=== PATIENT | female | born 1940 | race Caucasian/White ===

== ENCOUNTER 2019-07-25 21:32 | Inpatient (IN) | payer MEDICARE, MEDICAID ==
[~2019-07-25] VITALS: Ht 160 cm; Wt 61.2 kg
[2019-07-25] MEDS ORDERED: ONDANSETRON HCL 4MG/2ML INJ IV ONE (21:45)
[2019-07-25] MEDS ORDERED: SODIUM CHLORIDE 0.9% 1000ML BAG (SEPSIS BOLUS) IV ONE (21:45)
[2019-07-25] MEDS ORDERED: ACETAMINOPHEN 650MG SUPP PR STA (21:45)
[2019-07-25] MEDS ORDERED: PIPERACILLIN/TAZ 3.375G PREMIX 50 ML IV ONE (21:45)
[2019-07-25] MEDS ORDERED: LEVOFLOXACIN 500MG PREMIX 100 ML IV ONE (22:00)
[2019-07-25 22:05] LABS: BASOPHILS % 0.4 % (0.0-2.0); HEMATOCRIT. 42.3 % (36.0-48.0); LYMPHOCYTES % 8.2 % (20.0-50.0); MEAN CORPUSCULAR HEMOGLOBIN 27.9 pg (28.0-32.0); MEAN CORPUSCULAR VOLUME 84.2 fL (81.0-99.0); MEAN PLATELET VOLUME 8.1 fl (7.4-10.4); MONOCYTES % 3.2 % (2.0-8.0); NEUTROPHILS % 76.2 % (40.0-76.0); PLATELET 155 x1000/uL (130-400); RED BLOOD CELL COUNT 5.02 mill/uL (4.2-5.4); RED CELL DISTRIBUTION WIDTH 13.3 % (11.6-14.6)
[2019-07-25 22:10] LABS: PROTHROMBIN TIME 10.7 sec (9.6-11.0)
[2019-07-25 22:12] LABS: CHLORIDE 96 mEq/L (98-107)
[2019-07-25 22:17] LABS: BG CARBOXYHEMOGLOBIN 0.9 % (0.5-1.5); BG DEOXYHEMOGLOBIN 6.3 % (0.0-5.0); BG FRACTION INSPIRED OXYGEN 36; BG HCO3 ACT 25.8 mmol/L (22.0-26.0); BG METHEMOGLOBIN 0.3 % (0.0-1.5); BG OXYGEN SATURATION 93.6 % (92.0-98.5); BG OXYHEMOGLOBIN 92.5 % (94.0-97.0); BG PCO2 46.4 mmHg (35.0-45.0); BG PH 7.363 (7.350-7.450); BG PO2 69.2 mmHg (75.0-100.0); BG SAMPLE SITE RIGHT RADIAL; BG VENT MODE NASAL CANNULA
[2019-07-25 23:07] LABS: CLARITY URINE CLOUDY (CLEAR); COLOR URINE YELLOW (YELLOW); KETONES URINE NEGATIVE (NEGATIVE); LEUKOCYTE ESTERASE URINE 3+ (NEGATIVE); NITRITE URINE POSITIVE (NEGATIVE); OCCULT BLOOD URINE TRACE (NEGATIVE); PH URINE 6.5 (4.5-8.0); PROTEIN URINE 2+ (NEGATIVE); SPECIFIC GRAVITY URINE 1.008 (1.005-1.030)
[2019-07-26] MEDS ORDERED: DIPHENHYDRAMINE 50MG/ML VIAL IV PRN (01:00)
[2019-07-26] MEDS ORDERED: CLONIDINE 0.1MG TABLET PO PRN (01:00)
[2019-07-26] MEDS ORDERED: MAGNESIUM/ALUMINUM HYDROXIDE/SIMETHICONE 30ML UDC PO PRN (01:00)
[2019-07-26] MEDS ORDERED: ONDANSETRON HCL 4MG/2ML INJ IV PRN (01:00)
[2019-07-26] MEDS ORDERED: DEXTROSE 50% WATER 50ML SYRINGE IV PRN (01:00)
[2019-07-26] MEDS ORDERED: SODIUM CHLORIDE 0.9% 1,000 ML IV SCH (01:30)
[2019-07-26] MEDS ORDERED: IPRATROPIUM/ALBUTEROL 0.5-3(2.5)MG/3ML NEB HHN PRN (02:00)
[2019-07-26] MEDS: GUAIFENESIN 200MG/10ML SUGAR FREE UDC PO PRN (04:44)
[2019-07-26 05:25] LABS: HEMATOCRIT. 37.7 % (36.0-48.0); HEMOGLOBIN. 12.4 g/dL (12.0-16.0); MEAN CORPUSCULAR HEMOGLOBIN 27.8 pg (28.0-32.0); MEAN CORPUSCULAR VOLUME 84.9 fL (81.0-99.0); MEAN PLATELET VOLUME 7.9 fl (7.4-10.4); PLATELET 143 x1000/uL (130-400); RED BLOOD CELL COUNT 4.44 mill/uL (4.2-5.4); RED CELL DISTRIBUTION WIDTH 13.4 % (11.6-14.6)
[2019-07-26 05:32] LABS: CHLORIDE 102 mEq/L (98-107)
[2019-07-26 06:44] LABS: PLATELET ESTIMATE NORMAL
[2019-07-26] MEDS: INSULIN LISPRO 100 UNITS/ML SUBCUT SCH ×4 (08:20→21:00)
[2019-07-26] MEDS: BLOOD SUGAR DIAGNOSTIC STRIP TEST SCH ×4 (09:00→20:59)
[2019-07-26] MEDS ORDERED: AMLODIPINE 5MG TABLET PO SCH (09:00)
[2019-07-26 09:45] VITALS: BP 126/65
[2019-07-26 12:00] VITALS: BP 138/70
[2019-07-26] MEDS: IPRATROPIUM/ALBUTEROL 0.5-3(2.5)MG/3ML NEB HHN SCH ×2 (13:54→23:50)
[2019-07-26] MEDS ORDERED: PNEUMOCOCCAL 23-VAL P-SAC VAC 0.5 ML IM ONE (14:00)
[2019-07-26] MEDS ORDERED: INFLUENZA VIRUS VACCINE(AFLURIA) 0.5ML SYR IM ONE (14:00)
[2019-07-26] MEDS: AMLODIPINE 2.5MG TABLET PO SCH ×2 (14:37→20:52)
[2019-07-26] MEDS: ENOXAPARIN 40MG/0.4ML SYR SUBCUT SCH (14:38)
[2019-07-26] MEDS: SODIUM CHLORIDE 0.9% 1,000 ML IV SCH (14:39)
[2019-07-26] MEDS ORDERED: GABA-531 MT (15:00)
[2019-07-26] MEDS ORDERED: AMIT25TA9 MT (15:00)
[2019-07-26] MEDS ORDERED: AMLO5TAB4 MT (15:00)
[2019-07-26] MEDS ORDERED: SITA50TA3 MT (15:00)
[2019-07-26 16:00] VITALS: BP 106/43
[2019-07-26] MEDS ORDERED: CEFTAZIDIME PENTAHYDRATE 1 G in DEXTROSE 5% WATER 50 ML IV SCH (16:30)
[2019-07-26] MEDS: CEFTAZIDIME PENTAHYDRATE 1 G in DEXTROSE 5% WATER 50 ML IV SCH (18:41)
[2019-07-26 20:00] VITALS: BP 142/71
[2019-07-26] MEDS: GUAIFENESIN 600MG ER TABLET PO SCH (20:52)
[2019-07-26] MEDS: LEVOFLOXACIN 500MG PREMIX 100 ML IV SCH (22:34)
[2019-07-27 00:03] VITALS: BP 144/65
[2019-07-27] MEDS: CEFTAZIDIME PENTAHYDRATE 1 G in DEXTROSE 5% WATER 50 ML IV SCH ×2 (01:41→10:22)
[2019-07-27 04:00] VITALS: BP 137/80
[2019-07-27] MEDS: IPRATROPIUM/ALBUTEROL 0.5-3(2.5)MG/3ML NEB HHN SCH ×3 (04:34→14:40)
[2019-07-27] MEDS: SODIUM CHLORIDE 0.9% 1,000 ML IV SCH (05:00)
[2019-07-27] MEDS: ACETAMINOPHEN 325MG TABLET PO PRN ×2 (05:00→17:27)
[2019-07-27] MEDS: BLOOD SUGAR DIAGNOSTIC STRIP TEST SCH ×4 (05:37→20:38)
[2019-07-27 07:55] LABS: HEMATOCRIT. 36.9 % (36.0-48.0); HEMOGLOBIN. 12.1 g/dL (12.0-16.0); MEAN CORPUSCULAR HEMOGLOBIN 27.5 pg (28.0-32.0); MEAN CORPUSCULAR VOLUME 83.9 fL (81.0-99.0); PLATELET 148 x1000/uL (130-400); RED CELL DISTRIBUTION WIDTH 13.8 % (11.6-14.6)
[2019-07-27 08:00] VITALS: BP 118/55
[2019-07-27 08:06] LABS: CHLORIDE 105 mEq/L (98-107)
[2019-07-27] MEDS: GUAIFENESIN 600MG ER TABLET PO SCH ×2 (08:38→20:34)
[2019-07-27] MEDS: INSULIN LISPRO 100 UNITS/ML SUBCUT SCH ×4 (08:42→20:38)
[2019-07-27] MEDS: AMLODIPINE 2.5MG TABLET PO SCH ×2 (08:43→20:35)
[2019-07-27] MEDS: GUAIFENESIN 200MG/10ML SUGAR FREE UDC PO PRN (08:53)
[2019-07-27] MEDS: ENOXAPARIN 40MG/0.4ML SYR SUBCUT SCH (10:21)
[2019-07-27 11:34] LABS: PLATELET ESTIMATE NORMAL
[2019-07-27 12:00] VITALS: BP 135/69
[2019-07-27] MEDS ORDERED: POTASSIUM PHOS,M-BASIC-D-BASIC 15 MMOL in DEXT 5% WATER 245 ML IV SCH (12:00)
[2019-07-27 16:00] VITALS: BP 142/62
[2019-07-27 20:00] VITALS: BP 142/71
[2019-07-27 20:50] LABS: BG BASE EXCESS 4.3 mmol/L (-2.0-2.0); BG CARBOXYHEMOGLOBIN 0.3 % (0.5-1.5); BG DEOXYHEMOGLOBIN 4.3 % (0.0-5.0); BG FRACTION INSPIRED OXYGEN 32; BG HCO3 ACT 28.9 mmol/L (22.0-26.0); BG METHEMOGLOBIN 0.1 % (0.0-1.5); BG OXYGEN SATURATION 95.7 % (92.0-98.5); BG OXYHEMOGLOBIN 95.3 % (94.0-97.0); BG PCO2 43.4 mmHg (35.0-45.0); BG PH 7.442 (7.350-7.450); BG PO2 70.3 mmHg (75.0-100.0); BG SAMPLE SITE RIGHT RADIAL; BG TOTAL HEMOGLOBIN 13.5 g/dL (12.0-18.0); BG VENT MODE NASAL CANNULA
[2019-07-27] MEDS: LEVOFLOXACIN 500MG PREMIX 100 ML IV SCH (23:35)
[2019-07-28 00:05] VITALS: BP 141/62
[2019-07-28] MEDS: IPRATROPIUM/ALBUTEROL 0.5-3(2.5)MG/3ML NEB HHN SCH ×4 (00:50→20:04)
[2019-07-28] MEDS: SODIUM CHLORIDE 0.9% 1,000 ML IV SCH ×2 (02:51→23:08)
[2019-07-28 04:00] VITALS: BP 137/69
[2019-07-28] MEDS: BLOOD SUGAR DIAGNOSTIC STRIP TEST SCH ×4 (05:40→21:00)
[2019-07-28] MEDS: INSULIN LISPRO 100 UNITS/ML SUBCUT SCH ×4 (07:47→21:00)
[2019-07-28 08:00] VITALS: BP 124/56
[2019-07-28] MEDS: GUAIFENESIN 600MG ER TABLET PO SCH ×2 (10:00→21:02)
[2019-07-28] MEDS: AMLODIPINE 2.5MG TABLET PO SCH ×2 (10:00→21:02)
[2019-07-28] MEDS: ENOXAPARIN 40MG/0.4ML SYR SUBCUT SCH (10:01)
[2019-07-28 12:00] VITALS: BP 146/62
[2019-07-28] MEDS ORDERED: POTASSIUM PHOS,M-BASIC-D-BASIC 20 MMOL in DEXT 5% WATER 243.3333 ML IV ONE (12:15)
[2019-07-28 16:00] VITALS: BP 146/76
[2019-07-28] MEDS ORDERED: POTASSIUM CHLORIDE INJ 40 MEQ in DEXT 5% WATER 250 ML IV SCH (16:00)
[2019-07-28 20:00] VITALS: BP 146/76
[2019-07-28] MEDS: LEVOFLOXACIN 500MG PREMIX 100 ML IV SCH (23:50)
[2019-07-29 00:05] VITALS: BP 117/62
[2019-07-29] MEDS: TRAMADOL 50MG TABLET PO PRN (00:05)
[2019-07-29 04:00] VITALS: BP 129/55
[2019-07-29] MEDS: IPRATROPIUM/ALBUTEROL 0.5-3(2.5)MG/3ML NEB HHN SCH ×3 (05:02→16:54)
[2019-07-29] MEDS: BLOOD SUGAR DIAGNOSTIC STRIP TEST SCH ×4 (05:57→21:54)
[2019-07-29 06:31] LABS: CHLORIDE 102 mEq/L (98-107)
[2019-07-29 06:37] LABS: PHOSPHORUS 3.7 mg/dL (2.5-4.9)
[2019-07-29 06:40] LABS: HEMATOCRIT. 39.6 % (36.0-48.0); HEMOGLOBIN. 12.9 g/dL (12.0-16.0); MEAN CORPUSCULAR HEMOGLOBIN 27.4 pg (28.0-32.0); MEAN CORPUSCULAR VOLUME 83.9 fL (81.0-99.0); MEAN PLATELET VOLUME 7.9 fl (7.4-10.4); PLATELET 197 x1000/uL (130-400); RED BLOOD CELL COUNT 4.73 mill/uL (4.2-5.4); RED CELL DISTRIBUTION WIDTH 13.9 % (11.6-14.6)
[2019-07-29 08:00] VITALS: BP 126/73
[2019-07-29] MEDS: INSULIN LISPRO 100 UNITS/ML SUBCUT SCH ×4 (08:10→21:00)
[2019-07-29 10:19] LABS: PLATELET ESTIMATE NORMAL
[2019-07-29] MEDS: AMLODIPINE 2.5MG TABLET PO SCH ×2 (10:22→21:56)
[2019-07-29] MEDS: GUAIFENESIN 600MG ER TABLET PO SCH ×2 (10:23→21:56)
[2019-07-29] MEDS: ENOXAPARIN 40MG/0.4ML SYR SUBCUT SCH (10:24)
[2019-07-29 12:00] VITALS: BP 134/62
[2019-07-29 16:00] VITALS: BP 153/80
[2019-07-29] MEDS: ACETAMINOPHEN 325MG TABLET PO PRN (16:57)
[2019-07-29] MEDS ORDERED: MAGNESIUM 2 G PREMIX 50 ML IV NR (17:00)
[2019-07-29] MEDS: SODIUM CHLORIDE 0.9% 1,000 ML IV SCH (18:30)
[2019-07-29 20:00] VITALS: BP 140/64
[2019-07-29] MEDS: LEVOFLOXACIN 500MG PREMIX 100 ML IV SCH (21:56)
[2019-07-30] VITALS: BP 145/68
[2019-07-30] MEDS: IPRATROPIUM/ALBUTEROL 0.5-3(2.5)MG/3ML NEB HHN SCH ×3 (00:50→16:28)
[2019-07-30 04:00] VITALS: BP 116/68
[2019-07-30] MEDS: BLOOD SUGAR DIAGNOSTIC STRIP TEST SCH ×4 (07:40→21:00)
[2019-07-30 08:00] VITALS: BP 126/54
[2019-07-30] MEDS: INSULIN LISPRO 100 UNITS/ML SUBCUT SCH ×4 (08:10→21:00)
[2019-07-30] MEDS: GUAIFENESIN 600MG ER TABLET PO SCH ×2 (09:33→20:22)
[2019-07-30] MEDS: AMLODIPINE 2.5MG TABLET PO SCH ×2 (09:43→20:23)
[2019-07-30] MEDS: TRAMADOL 50MG TABLET PO PRN ×2 (09:44→20:23)
[2019-07-30] MEDS: ENOXAPARIN 40MG/0.4ML SYR SUBCUT SCH (09:47)
[2019-07-30 12:00] VITALS: BP 117/63
[2019-07-30 16:00] VITALS: BP 125/56
[2019-07-30 20:00] VITALS: BP 140/69
[2019-07-30] MEDS: LEVOFLOXACIN 500MG PREMIX 100 ML IV SCH (20:22)
[2019-07-31] VITALS: BP 131/57
[2019-07-31] MEDS: IPRATROPIUM/ALBUTEROL 0.5-3(2.5)MG/3ML NEB HHN SCH ×3 (00:26→16:49)
[2019-07-31 04:00] VITALS: BP 140/65
[2019-07-31 07:26] LABS: HEMATOCRIT. 42.4 % (36.0-48.0); MEAN CORPUSCULAR HEMOGLOBIN 27.4 pg (28.0-32.0); MEAN CORPUSCULAR VOLUME 83.2 fL (81.0-99.0); MEAN PLATELET VOLUME 7.5 fl (7.4-10.4); PLATELET 225 x1000/uL (130-400); RED CELL DISTRIBUTION WIDTH 14.2 % (11.6-14.6)
[2019-07-31 07:34] LABS: CHLORIDE 97 mEq/L (98-107)
[2019-07-31] MEDS: BLOOD SUGAR DIAGNOSTIC STRIP TEST SCH ×3 (07:40→17:40)
[2019-07-31] MEDS: INSULIN LISPRO 100 UNITS/ML SUBCUT SCH ×3 (08:10→18:10)
[2019-07-31 08:17] VITALS: BP 147/57
[2019-07-31] MEDS: AMLODIPINE 2.5MG TABLET PO SCH (08:49)
[2019-07-31] MEDS: GUAIFENESIN 600MG ER TABLET PO SCH (08:49)
[2019-07-31] MEDS: ENOXAPARIN 40MG/0.4ML SYR SUBCUT SCH (11:02)
[2019-07-31 11:33] VITALS: BP 117/57
[2019-07-31 11:48] LABS: PLATELET ESTIMATE NORMAL
[2019-07-31] MEDS ORDERED: LEVOFLOXACIN 500MG TABLET PO NR (16:00)
[2019-07-31 16:25] VITALS: BP 117/57
[2019-07-31 16:29] VITALS: BP 129/64
== END 2019-07-31 20:30 | disposition home health service (06) | DRG 720 ==
LOC: ER 21:32 → EDBEDREQDT 07-26 00:06 → EDBEDREQSVC 07-26 00:06 → EDBEDREQ 07-26 00:06 → EDBEDREQTM 07-26 00:06 → 7WST 07-26 00:22 → EDBEDREQ 07-26 00:29 → EDBEDREQTM 07-26 00:29 → CANRESERV 07-26 07:01 → ENRESERV 07-26 07:01 → 7WST 07-28 11:00
PROVIDERS: ADMIT Internal Medicine; ATTEND Internal Medicine
DX: A41.51 Sepsis due to Escherichia coli [E. coli] (principal); J96.00 Acute respiratory failure, unspecified whether with hypoxia or hypercapnia; E87.2 Acidosis; N39.0 Urinary tract infection, site not specified; E87.1 Hypo-osmolality and hyponatremia; J20.9 Acute bronchitis, unspecified; J18.1 Lobar pneumonia, unspecified organism; I10 Essential (primary) hypertension; M19.90 Unspecified osteoarthritis, unspecified site; K74.60 Unspecified cirrhosis of liver; K57.90 Diverticulosis of intestine, part unspecified, without perforation or abscess without bleeding; E11.65 Type 2 diabetes mellitus with hyperglycemia; B96.20 Unspecified Escherichia coli [E. coli] as the cause of diseases classified elsewhere; Z85.43 Personal history of malignant neoplasm of ovary; Z88.5 Allergy status to narcotic agent; Z59.0 Homelessness; Z90.710 Acquired absence of both cervix and uterus; Z79.84 Long term (current) use of oral hypoglycemic drugs
CPT/HCPCS: 36415; 36600; 71045; 74176; 80048; 81003; 82375; 82805; 82962; 83036; 83605; 83735; 83880; 84100; 84145; 84484; 87070; 87077; 87186; 87804; 90686; 90732; 93005; 94640; 96365; 97162; 99291; J0713; J1650; J1815; J1956; J2405; J2543; J3475; J3480; J3490; J7030; J7060; J7620